=== PATIENT | male | born 1985 | race Caucasian/White ===

== ENCOUNTER 2021-08-03 18:51 | Emergency (ER) | payer BC, OTHER, SELFPAY ==
[2021-08-03] MEDS ORDERED: NA CHLORIDE 0.9% 1,000 ML ONE (19:25)
[2021-08-03] MEDS ORDERED: NIFEdipine 10 MG CAP ONE (19:25)
[2021-08-03] MEDS ORDERED: GLUCAGON 1 MG/VIAL ONE (19:25)
--- NOTE | 2021-08-03 20:05 | EDPHYS ---
Physician Documentation [facility] Name: Leo Townsend Age: 35 yrs Sex: Male : 1985 Arrival Date: 08/03/2021 Time: 18:51 Bed 16 Private MD: ED Physician Bebeto Palma HPI: 08/03 19:27 This 35 yrs old Male presents to ER via Ambulatory with complaints of Foreign pkl Body In Throat - food. 19:27 The patient or guardian reports the patient has a suspected foreign body, esophagus. pkl The reported likely foreign body is piece of meat, steak. Onset: The symptoms/episode began/occurred 2 hour(s) ago. The patient has experienced similar episodes in the past, a few times. Historical: - Allergies: 18:57 NKDA; vg1 - Home Meds: 18:57 pantoprazole oral [Active]; vg1 - PMHx: 18:57 GERD; Hiatal Hernia; vg1 - Immunization history:: Client reports having NOT received the Covid vaccine. - Social history:: Smoking status: Patient denies any tobacco usage or history of. ROS: 19:27 Eyes: Negative for injury, pain, redness, and discharge, ENT: Negative for injury, pkl pain, and discharge, Neck: Negative for injury, pain, and swelling, Cardiovascular: Negative for chest pain, palpitations, and edema, Respiratory: Negative for shortness of breath, cough, wheezing, and pleuritic chest pain, Abdomen/GI: Negative for abdominal pain, nausea, vomiting, diarrhea, and constipation, Back: Negative for injury and pain, : Negative for injury, bleeding, discharge, and swelling, MS/Extremity: Negative for injury and deformity, Skin: Negative for injury, rash, and discoloration, Neuro: Negative for headache, weakness, numbness, tingling, and seizure. Exam: 19:27 Head/Face: Normocephalic, atraumatic. Eyes: Pupils equal round and reactive to light, pkl extra-ocular motions intact. Lids and lashes normal. Conjunctiva and sclera are non-icteric and not injected. Cornea within normal limits. Periorbital areas with no swelling, redness, or edema. ENT: Nares patent. No nasal discharge, no septal abnormalities noted. Tympanic membranes are normal and external auditory canals are clear. Oropharynx with no redness, swelling, or masses, exudates, or evidence of obstruction, uvula midline. Mucous membranes moist. Neck: Trachea midline, no thyromegaly or masses palpated, and no cervical lymphadenopathy. Supple, full range of motion without nuchal rigidity, or vertebral point tenderness. No Meningismus. Chest/axilla: Normal chest wall appearance and motion. Nontender with no deformity. No lesions are appreciated. Cardiovascular: Regular rate and rhythm with a normal S1 and S2. No gallops, murmurs, or rubs. Normal PMI, no JVD. No pulse deficits. Respiratory: Lungs have equal breath sounds bilaterally, clear to auscultation and percussion. No rales, rhonchi or wheezes noted. No increased work of breathing, no retractions or nasal flaring. Abdomen/GI: Soft, non-tender, with normal bowel sounds. No distension or tympany. No guarding or rebound. No evidence of tenderness throughout. Back: No spinal tenderness. No costovertebral tenderness. Full range of motion. Skin: Warm, dry with normal turgor. Normal color with no rashes, no lesions, and no evidence of cellulitis. MS/ Extremity: Pulses equal, no cyanosis. Neurovascular intact. Full, normal range of motion. Neuro: Awake and alert, GCS 15, oriented to person, place, time, and situation. Cranial nerves II-XII grossly intact. Motor strength 5/5 in all extremities. Sensory grossly intact. Cerebellar exam normal. Normal gait. Vital Signs: 18:56 BP 140 / 98; Pulse 80; Resp 16; Temp 98.0; Pulse Ox 100% ; Weight 104.33 kg; Height 6 vg1 ft. 0 in. (182.88 cm); Pain 4/10; 19:44 BP 122 / 81; Pulse 80; Resp 18; Temp 98.8(O); Pulse Ox 100% on R/A; Pain 5/10; kc4 20:28 BP 115 / 82; Pulse 88; Resp 18; Temp 98.6(O); Pulse Ox 100% on R/A; Pain 0/10; kc4 18:56 Body Mass Index 31.19 (104.33 kg, 182.88 cm) vg1 MDM: 19:08 Patient medically screened. pkl 20:01 Data reviewed: vital signs, nurses notes. ED course: Patient feeling better. Able to pkl drink fluid without regurgitation. Advised to follow up with [employer] [facility] next week. To return if necessary. Patient understood instructions. Administered Medications: 19:40 Drug: NS 0.9% 1000 ml Route: IV; Rate: 125 ml/hr; Site: left antecubital; kc4 20:31 Follow up: IV Status: Completed infusion kc4 20:31 Follow up: Response: No adverse reaction kc4 19:40 Drug: Glucagon 1 mg Route: IVP; Site: left antecubital; kc4 20:31 Follow up: Response: No adverse reaction kc4 19:40 Drug: Procardia (NIFEdipine) 10 mg Route: PO; kc4 20:31 Follow up: Response: No adverse reaction kc4 Disposition Summary: 08/03/21 20:05 Discharge Ordered Location: Home pkl Problem: new pkl Symptoms: are resolved pkl Condition: Stable pkl Diagnosis - Foreign body ( Piece of steak ) lodged in esophagus ( Resolved ) pkl Followup: pkl - With: Private Physician - When: 2 - 3 days - Reason: Re-evaluation by your physician Discharge Instructions: - Discharge Summary Sheet bb Forms: - Medication Reconciliation Form pkl - Thank You Letter pkl - Antibiotic Education pkl - Prescription Opioid Use pkl Signatures: Bebeto Palma MD MD pkl Radhika Harris RN RN vg1 Antoinette Smith kc4
--- NOTE | 2021-08-03 20:05 | ER ---
Nurse's Notes [facility] Name: Leo Townsend Age: 35 yrs Sex: Male : 1985 Arrival Date: 08/03/2021 Time: 18:51 Bed 16 Private MD: Diagnosis: Foreign body ( Piece of steak ) lodged in esophagus ( Resolved ) Presentation: 08/03 18:56 Chief complaint: Patient states: Ate steak about two hours ago; states can feel vg1 something lodge in Epigastric area. Has tried to drink coke to make it go down, but each time drinks something will vomit it back up. Coronavirus screen: Vaccine status: Patient reports being unvaccinated. Client denies travel out of the [place] in the last 14 days. Ebola Screen: Patient negative for fever greater than or equal to 101.5 degrees Fahrenheit, and additional compatible Ebola Virus Disease symptoms. Initial Sepsis Screen: Does the patient meet any 2 criteria? No. Patient's initial sepsis screen is negative. Does the patient have a suspected source of infection? No. Patient's initial sepsis screen is negative. Risk Assessment: Do you want to hurt yourself or someone else? Patient reports no desire to harm self or others. Onset of symptoms was August 03, 2021. 18:56 Method Of Arrival: Ambulatory vg1 18:56 Acuity: XAVI 3 vg1 Triage Assessment: 18:57 General: Appears in no apparent distress. uncomfortable, Behavior is calm, cooperative. vg1 Pain: Complains of pain in epigastric area Pain currently is 4 out of 10 on a pain scale. Historical: - Allergies: 18:57 NKDA; vg1 - Home Meds: 18:57 pantoprazole oral [Active]; vg1 - PMHx: 18:57 GERD; Hiatal Hernia; vg1 - Immunization history:: Client reports having NOT received the Covid vaccine. - Social history:: Smoking status: Patient denies any tobacco usage or history of. Screenin:45 Abuse screen: Denies threats or abuse. Denies injuries from another. Nutritional kc4 screening: No deficits noted. On no prescribed diet Difficulty chewing/swallowing? Yes. Tuberculosis screening: No symptoms or risk factors identified. Never had TB. Possible symptoms: None Risk factors: None. Fall Risk None identified. No fall in past 12 months (0 pts). No secondary diagnosis (0 pts). IV access (20 points). Ambulatory Aid- None/Bed Rest/Nurse Assist (0 pts). Gait- Normal/Bed Rest/Wheelchair (0 pts) Mental Status- Oriented to own ability (0 pts). Total Irving Fall Scale indicates No Risk (0-24 pts). Assessment: 19:41 General: Appears in no apparent distress. comfortable, Behavior is calm, cooperative, kc4 appropriate for age. Pain: Complains of pain in epigastric area Pain does not radiate. Pain currently is 5 out of 10 on a pain scale. at worst was 8 out of 10 on a pain scale. Quality of pain is described as pressure, Pain began 1 hour ago. Is continuous. Neuro: No deficits noted. Cardiovascular: No deficits noted. Respiratory: No deficits noted. Airway is patent Trachea midline Respiratory effort is even, unlabored, Respiratory pattern is regular, symmetrical, Breath sounds are clear bilaterally. Onset: The symptoms/episode began/occurred suddenly. EENT: Throat pt states " i have steak stuck in my throat.". Reports difficulty swallowing since since 1 hr.prior to arrival. no sob or resp. compliants. Vital Signs: 18:56 BP 140 / 98; Pulse 80; Resp 16; Temp 98.0; Pulse Ox 100% ; Weight 104.33 kg; Height 6 vg1 ft. 0 in. (182.88 cm); Pain 4/10; 19:44 BP 122 / 81; Pulse 80; Resp 18; Temp 98.8(O); Pulse Ox 100% on R/A; Pain 5/10; kc4 20:28 BP 115 / 82; Pulse 88; Resp 18; Temp 98.6(O); Pulse Ox 100% on R/A; Pain 0/10; kc4 18:56 Body Mass Index 31.19 (104.33 kg, 182.88 cm) vg1 ED Course: 18:51 Patient arrived in ED. as 18:57 Triage completed. vg1 18:57 Arm band placed on. vg1 19:00 Patient has correct armband on for positive identification. Placed in gown. Bed in low kc4 position. Call light in reach. Side rails up X 1. 19:08 Bebeto Palma MD is Attending Physician. pkl 19:23 Antoinette Smith is Primary Nurse. kc4 19:30 Inserted saline lock: 18 gauge in left antecubital area, using aseptic technique. kc4 19:45 No provider procedures requiring assistance completed. kc4 20:30 IV discontinued, intact, bleeding controlled, No redness/swelling at site. Pressure kc4 dressing applied. Administered Medications: 19:40 Drug: NS 0.9% 1000 ml Route: IV; Rate: 125 ml/hr; Site: left antecubital; kc4 20:31 Follow up: IV Status: Completed infusion kc4 20:31 Follow up: Response: No adverse reaction kc4 19:40 Drug: Glucagon 1 mg Route: IVP; Site: left antecubital; kc4 20:31 Follow up: Response: No adverse reaction kc4 19:40 Drug: Procardia (NIFEdipine) 10 mg Route: PO; kc4 20:31 Follow up: Response: No adverse reaction kc4 Outcome: 20:05 Discharge ordered by . sandeep 20:29 Discharged to home ambulatory. kc4 20:29 Condition: improved 20:29 Discharge instructions given to patient, Instructed on discharge instructions, follow up and referral plans. Demonstrated understanding of instructions, follow-up care. 20:32 Patient left the ED. kc4 Signatures: Bebeto Palma MD MD pkl Martinez, Amelia as Garcia, Victoria, RN RN vg1 Antoinette Smith kc4
[2021-08-03 20:38] VITALS: O2SAT 100
[2021-08-03 20:42] VITALS: BP 115/82; TEMP 98.6
== END 2021-08-03 20:32 | disposition home or self-care (01) ==
LOC: ER 18:51
DX: T18.128A Food in esophagus causing other injury, initial encounter (principal)
CPT/HCPCS: 96361; 96374; 99283; J1610; J7030

== ENCOUNTER 2023-05-19 17:32 | Observation (INO) | payer BC ==
--- NOTE | 2023-05-19 18:39 | RAD REPORT ---
EXAM DESCRIPTION: RAD - Chest Single View - 05/19/2023 6:13 pm CLINICAL HISTORY: CHEST PAIN Chest pain. COMPARISON: No comparisons FINDINGS: Portable technique limits examination quality. The lungs are grossly clear. The heart is normal in size. No displaced fractures. IMPRESSION: No acute intrathoracic process suspected.
[2023-05-19 19:08] LABS: Absolute Lymphocytes (CBC) 2.6 K/uL (0.7-4.9); Hematocrit 49.8 % (39.6-49.0); Lymphocytes % 32.5 % (15.3-44.8); MCV 86.5 fL (80-100); MPV 7.7 fL (7.6-11.3); Platelets 190 thou/uL (152-406); RBC Red Blood Cell Count 5.75 M/uL (4.33-5.43)
[2023-05-19] MEDS ORDERED: ASPIRIN 81 MG CHEWABLE TABLET ONE (19:14)
[2023-05-19 19:25] LABS: Magnesium 2.3 mg/dL (1.6-2.4)
[2023-05-19 19:28] LABS: Troponin High Sensitivity 70.5 pg/mL (<58.9)
--- NOTE | 2023-05-19 20:45 | ER ---
Nurse's Notes [facility] Name: Leo Townsend Age: 37 yrs Sex: Male : 1985 Arrival Date: 05/19/2023 Time: 17:32 Bed 10 Private MD: Diagnosis: Chest pain, unspecified;Elevated troponin Presentation: 05/19 17:46 Chief complaint: Patient states: chest pain to the left side of his chest onset Thursday. cm10 PT states that the pain has been intermittent does not radiate. Pt states that the pain is "a pulsating pain.". Coronavirus screen: Vaccine status: Patient reports being unvaccinated. Client denies travel out of the [place] in the last 14 days. Ebola Screen: Patient denies travel to an Ebola-affected area in the 21 days before illness onset. No symptoms or risks identified at this time. Initial Sepsis Screen: Does the patient meet any 2 criteria? No. Patient's initial sepsis screen is negative. Does the patient have a suspected source of infection? No. Patient's initial sepsis screen is negative. Risk Assessment: Do you want to hurt yourself or someone else? Patient reports no desire to harm self or others. Onset of symptoms was May 19, 2023. 17:46 Method Of Arrival: Ambulatory 10 17:46 Acuity: XAVI 2 cm10 Historical: - Allergies: 17:48 NKDA; cm10 - PMHx: 17:48 GERD; hiatal hernia; cm10 - Immunization history:: Adult Immunizations unknown. - Social history:: Smoking status: Patient denies any tobacco usage or history of. Screenin:[address] [facility] ED Fall Risk Assessment (Adult) Score/Fall Risk Level 0 - 2 = Low Risk jl7 Oriented to surroundings, Maintained a safe environment. Abuse screen: Denies threats or abuse. Denies injuries from another. Nutritional screening: No deficits noted. Tuberculosis screening: No symptoms or risk factors identified. Assessment: 18:30 General: Appears in no apparent distress. uncomfortable, Behavior is calm, cooperative, jl7 appropriate for age. Pain: Complains of pain in anterior aspect of left upper chest Pain radiates to left arm Pain currently is 3 out of 10 on a pain scale. Quality of pain is described as pressure, Pain began 2-3 days ago. Neuro: Level of Consciousness is awake, alert, obeys commands, Oriented to person, place, time, situation. Cardiovascular: Patient's skin is warm and dry. Respiratory: Airway is patent Respiratory effort is even, unlabored, Respiratory pattern is regular, symmetrical. 19:10 General: Appears comfortable, Behavior is calm, cooperative. Pain: Complains of pain in ha1 chest Pain radiates to left arm Pain currently is 4 out of 10 on a pain scale. Quality of pain is described as pressure, Pain began 2-3 days ago. Neuro: Level of Consciousness is awake, alert, obeys commands, Oriented to person, place, time, situation. Cardiovascular: Heart tones S1 S2 present Patient's skin is warm and dry. Respiratory: Airway is patent Respiratory effort is even, unlabored, Respiratory pattern is regular, symmetrical. 20:10 Reassessment: Patient and/or family updated on plan of care and expected duration. Pain ha1 level reassessed. Patient is alert, oriented x 3, equal unlabored respirations, skin warm/dry/pink. pain 3/10 Patient states feeling better. Patient states symptoms have improved. 21:10 Reassessment: Patient and/or family updated on plan of care and expected duration. Pain ha1 level reassessed. Patient is alert, oriented x 3, equal unlabored respirations, skin warm/dry/pink. pain 3/10. 21:55 Reassessment: attempted to give report. ha1 22:00 Reassessment: Patient and/or family updated on plan of care and expected duration. Pain ha1 level reassessed. Patient is alert, oriented x 3, equal unlabored respirations, skin warm/dry/pink. 22:12 Reassessment: report given to MIKE Muñiz. ha1 Vital Signs: 17:46 BP 144 / 103; Pulse 71; Resp 16; Temp 98.6; Pulse Ox 96% ; Weight 104.33 kg; Height 6 cm10 ft. 0 in. ; Pain 3/10; 18:56 BP 142 / 85; Pulse 78; Resp 15; Pulse Ox 100% ; Pain 3/10; jl7 19:10 BP 141 / 86; Pulse 85; Resp 17 S; Pulse Ox 100% on R/A; ha1 20:10 BP 139 / 87; Pulse 86; Resp 16 S; Pulse Ox 99% on R/A; ha1 21:10 BP 132 / 90; Pulse 52; Resp 17 S; Pulse Ox 100% on R/A; ha1 17:46 Body Mass Index 31.19 (104.33 kg, 182.88 cm) cm10 17:46 Pain Scale: Adult cm10 18:56 Pain Scale: Adult jl7 ED Course: 17:34 Patient arrived in ED. rg4 17:36 Allyson Reza FNP-C [facility]. kb 17:36 Cristino Correa DO is Attending Physician. kb 17:48 Triage completed. cm10 17:48 Arm band placed on Patient placed in waiting room. cm10 18:15 XRAY Chest (1 view) In Process Unspecified. EDMS 18:30 Patient has correct armband on for positive identification. Provided Education on: use jl7 of call suazo. Client placed on continuous cardiac and pulse oximetry monitoring. NIBP monitoring applied. 18:30 Initial lab(s) drawn, by me, sent to lab. Inserted saline lock: 20 gauge in left jl7 antecubital area, using aseptic technique. Blood collected. Patient maintains SpO2 saturation greater than 95% on room air. 18:56 Delfina Resendiz, MIKE is Primary Nurse. jl7 19:28 Notified Nurse Practitioner and/or Physician Transit Survey Worker of a critical lab result(s), kl Troponin 70.5. 20:45 Thanh Pierson MD is Hospitalizing Provider. kb 22:13 No provider procedures requiring assistance completed. Patient admitted, IV remains in ha1 place. Administered Medications: 19:05 Drug: Aspirin PO Chewable Tablet 324 mg Route: PO; ha1 22:16 Follow up: Response: No adverse reaction ha1 Medication: 18:30 VIS not applicable for this client. jl7 Outcome: 20:45 Decision to Hospitalize by Provider. kb 22:13 Condition: stable ha1 22:22 Admitted to Med/surg accompanied by tech, via wheelchair, room 214, with chart, Report ha1 called to MIKE Muñiz 22:22 Discharge instructions given to patient, Instructed on the need for admit. 22:23 Patient left the ED. ha1 Signatures: Dispatcher [employer] EDNH Allyson Reza, Zuri Blackburn RN RN kl Garcia, Rubi rg4 Delfina Resendiz RN RN jl7 Mariah Romero RN RN 1 Estelle Morrison, RN RN cm10
--- NOTE | 2023-05-19 20:45 | EDPHYS ---
Physician Documentation [facility] Name: Leo Townsend Age: 37 yrs Sex: Male : 1985 Arrival Date: 05/19/2023 Time: 17:32 Bed 10 Private MD: ED Physician Cristino Correa HPI: 05/19 22:25 This 37 yrs old Male presents to ER via Ambulatory with complaints of Chest Pain. kb 22:25 The patient or guardian reports chest pain that is located primarily in the anterior kb chest wall, left. The pain does not radiate. Associated signs and symptoms: Pertinent positives: palpitations. The chest pain is described as dull. Duration: The patient or guardian reports multiple episodes. Modifying factors: The symptoms are alleviated by nothing. the symptoms are aggravated by nothing. Severity of pain: At its worst the pain was moderate in the emergency department the pain is unchanged. The patient has not experienced similar symptoms in the past. The patient has not recently seen a physician. Pt reports intermittent chest pain since Thursday that became constant today. States he has had intermittent palpitations with the pain. Historical: - Allergies: 17:48 NKDA; cm10 - PMHx: 17:48 GERD; hiatal hernia; cm10 - Immunization history:: Adult Immunizations unknown. - Social history:: Smoking status: Patient denies any tobacco usage or history of. ROS: 22:25 Constitutional: Negative for fever, chills, and weight loss. kb 22:25 Cardiovascular: Positive for chest pain, palpitations. 22:25 All other systems are negative. Exam: 21:44 Constitutional: This is a well developed, well nourished patient who is awake, alert, kb and in no acute distress. Head/Face: Normocephalic, atraumatic. ENT: Moist Mucous membranes Cardiovascular: Regular rate and rhythm with a normal S1 and S2. No gallops, murmurs, or rubs. No pulse deficits. Respiratory: Respirations even and unlabored. No increased work of breathing. Talking in full sentences Abdomen/GI: Soft, non-tender. No distention Skin: Warm, dry with normal turgor. Normal color. MS/ Extremity: Pulses equal, no cyanosis. Neurovascular intact. Full, normal range of motion. Neuro: Awake and alert, GCS 15, oriented to person, place, time, and situation. Moves all extremities. Normal gait. 21:44 ECG was reviewed by the Attending Physician. Vital Signs: 17:46 BP 144 / 103; Pulse 71; Resp 16; Temp 98.6; Pulse Ox 96% ; Weight 104.33 kg; Height 6 cm10 ft. 0 in. ; Pain 3/10; 18:56 BP 142 / 85; Pulse 78; Resp 15; Pulse Ox 100% ; Pain 3/10; jl7 19:10 BP 141 / 86; Pulse 85; Resp 17 S; Pulse Ox 100% on R/A; ha1 20:10 BP 139 / 87; Pulse 86; Resp 16 S; Pulse Ox 99% on R/A; ha1 21:10 BP 132 / 90; Pulse 52; Resp 17 S; Pulse Ox 100% on R/A; ha1 17:46 Body Mass Index 31.19 (104.33 kg, 182.88 cm) cm10 17:46 Pain Scale: Adult cm10 18:56 Pain Scale: Adult jl7 MDM: 17:40 Patient medically screened. kb 22:24 Data reviewed: vital signs, nurses notes. Consideration of Admission/Observation kb Patient was admitted/placed on observation. Escalation of care including admission/observation considered. Management of patient was discussed with the following: Hospitalist: Yobani [facility] accepts pt for admission under Dr Pierson. Counseling: I had a detailed discussion with the patient and/or guardian regarding the historical points, exam findings, and any diagnostic results supporting the discharge/admit diagnosis, lab results, radiology results, the need for further work-up and treatment in the hospital. 22:25 Differential diagnosis: abnormal EKG, acute myocardial infarction, coronary artery kb disease chest wall pain. 05/19 17:40 Order name: Basic Metabolic Panel; Complete Time: 19:29 kb 05/19 17:40 Order name: CBC with Diff; Complete Time: 19:29 kb 05/19 17:40 Order name: Magnesium; Complete Time: 19:29 kb 05/19 17:40 Order name: NT PRO-BNP; Complete Time: 19:29 kb 05/19 17:40 Order name: Troponin HS; Complete Time: 19:29 kb 05/19 20:24 Order name: D-Dimer; Complete Time: 22:10 kb 05/19 21:34 Order name: Troponin High Sensitivity ha1 05/19 22:18 Order name: Troponin High Sensitivity; Complete Time: 22:21 EDMS 05/19 17:40 Order name: XRAY Chest (1 view); Complete Time: 18:42 kb 05/19 17:40 Order name: EKG; Complete Time: 17:41 kb 05/19 17:40 Order name: Cardiac monitoring; Complete Time: 18:58 kb 05/19 17:40 Order name: EKG - Nurse/Tech; Complete Time: 17:51 kb 05/19 17:40 Order name: IV Saline Lock; Complete Time: 18:58 kb 05/19 17:40 Order name: Labs collected and sent; Complete Time: 18:58 kb 05/19 17:40 Order name: O2 Per Protocol; Complete Time: 17:51 kb 05/19 17:40 Order name: O2 Sat Monitoring; Complete Time: 17:51 kb EC:44 Rate is 64 beats/min. Rhythm is regular. QRS Panacea is Normal. NC interval is normal at kb 152 msec. QRS interval is normal at 92 msec. QT interval is normal at 377 msec. Administered Medications: 19:05 Drug: Aspirin PO Chewable Tablet 324 mg Route: PO; ha1 22:16 Follow up: Response: No adverse reaction ha1 Disposition: 05/20 11:27 Co-signature as Attending Physician, Cristino Correa DO I was immediately available on-site ms3 in the Emergency Department for consultation in the care of the patient. Disposition Summary: 05/19/23 20:45 Hospitalization Ordered Hospitalization Status: Observation kb Provider: Thanh Pierson Location: Telemetry/MedSurg (observation) kb Condition: Stable kb Problem: new kb Symptoms: are unchanged kb Bed/Room Type: Standard Room Assignment: 214(05/19/23 21:35) Diagnosis - Chest pain, unspecified kb - Elevated troponin kb Forms: - Medication Reconciliation Form kb - SBAR form kb - Leadership Thank You Letter kb Signatures: Dispatcher [employer] EDMT Allyson Reza FNP-C FNP-Ckb Webb, Martha, RN RN Yobani Duque FNP-C FNP-Cristino Wright DO DO ms3 Mariah Romero RN RN 1 Estelle Morrison RN RN cm10 Corrections: (The following items were deleted from the chart) 05/19 21:35 20:45 kb mw
--- NOTE | 2023-05-19 22:32 | P.HP ---
Certification for Inpatient Patient admitted to: Observation With expected LOS: <2 Midnights Patient will require the following post-hospital care: None Practitioner: I am a practitioner with admitting privileges, knowledge of patient current condition, hospital course, and medical plan of care. Services: Services provided to patient in accordance with Admission requirements found in Title 42 Section 412.3 of the Code of Federal Regulations Patient History Date of Service: 05/19/23 Reason for admission: Chest pain History of Present Illness: 29-year-old male with history of GERD presents to the emergency department chief complaint of chest pain. He reports episodic intermittent chest pain that started on Thursday lasting for approximately 5 minutes at a time described as throbbing and also sometimes dull/pressure-like. The pain is not associated with any particular event or exertion/eating. He does take pantoprazole for GERD but has not needed any additional medications recently nor does he feel like his reflux has been bad. Today his chest pain remained persistent had some mild paresthesia in the left upper extremity for that reason he came to the emergency department. He was evaluated in the emergency department his EKG was without STEMI criteria his initial high-sensitivity troponin was mildly elevated at 70.5. He was given aspirin in the ED, ED provider wishes to admit under observation for ACS rule out. Patient denies any previous cardiac evaluation, has no family history of heart disease. Allergies No Known Drug Allergi Allergy (Uncoded 04/27/16 21:16) Unknown - Past Medical/Surgical History -: GERD -: None Psychosocial/ Personal History: Patient lives at home with his family, is employed - Family History Family History: Reviewed- Non-Contributory - Social History Smoking Status: Never smoker Place of Residence: Home Review of Systems 10-point ROS is otherwise unremarkable Cardiovascular: Chest Pain Physical Examination - Physical Exam General: Alert, In no apparent distress, Oriented x3 HEENT: Atraumatic, PERRLA, Mucous membr. moist/pink, EOMI, Sclerae nonicteric Neck: Supple, 2+ carotid pulse no bruit, No LAD, Without JVD or thyroid abnormality Respiratory: Clear to auscultation bilaterally, Normal air movement Cardiovascular: Regular rate/rhythm, Normal S1 S2 Gastrointestinal: Normal bowel sounds, No tenderness Musculoskeletal: No tenderness Integumentary: No rashes Neurological: Normal gait, Normal speech, Normal strength at 5/5 x4 extr, Normal tone, Normal affect Lymphatics: No axilla or inguinal lymphadenopathy - Studies Laboratory Data (last 24 hrs) 05/19/23 05/19/23 18:50 18:50 WBC 8.00 Hgb 17.0 Hct 49.8 H Plt Count 190 Sodium 136 Potassium 4.0 BUN 20 H Creatinine 1.40 H Glucose 97 Magnesium 2.3 Assessment and Plan - Plan Assessment: Chest pain rule out ACS GERD Plan: Chest pain rule out ACS Initial high-sensitivity troponin mildly elevated, will trend troponins, monitor on telemetry, cardiology consult. Continue aspirin, statin, as needed pain medications. D-dimer negative. GERD Continue Protonix. DVT PPX: Lovenox Code status: Full Discharge Plan: Home Plan to discharge in: 24 Hours - Advance Directives Does patient have a Living Will: No Does patient have a Durable POA for Healthcare: No - Code Status/Comfort Care Code Status Assessed: Yes (Full code) Critical Care: No Time Spent Managing Pts Care (In Minutes): 55
[2023-05-19 22:41] VITALS: BMI 32.6
[2023-05-20 03:40] LABS: Absolute Lymphocytes (CBC) 2.4 K/uL (0.7-4.9); MCV 85.7 fL (80-100); MPV 7.8 fL (7.6-11.3); Platelets 164 thou/uL (152-406); RBC Red Blood Cell Count 5.37 M/uL (4.33-5.43)
[2023-05-20 04:09] LABS: Potassium 3.9 mEq/L (3.5-5.1); Thyroid Stimulating Hormone 1.03 uIU/mL (0.358-3.740)
[2023-05-20 04:10] LABS: Troponin High Sensitivity 65.2 pg/mL (<58.9)
--- NOTE | 2023-05-20 07:25 | P.PN ---
Date of Service: 05/20/23 Subjective: Dull chest pain continues - constant since yesterday morning chest pain rated 4-5/10 today compared to yesterdays 3/10 Feels some numbness in upper left extremity since yesterday +intermittent chest pain with each heartbeat since thursday (~2 episodes a day lasting for ~2-5 min) ROS: 10 point ROS as noted above, otherwise negative Physical Exam: GEN: Alert, oriented, NAD HEENT: Normal conjunctiva, sclera anicteric CV: Regular rate and rhythm, no edema Pulm: Nonlabored respirations on room air ABD: Soft, nontender, nondistended MSK: No joint tenderness Integumentary: No rashes Neuro: Normal speech, normal affect vitals reviewed Problem List: NSTEMI; chest pain GERD NSTEMI, chest pain Dull constant chest pain / pressure since yesterday morning +intermittent chest pain with each heartbeat since Thursday (~2 episodes a day lasting for ~2-5 min) troponins mildly elevated, continue to trend monitor on telemetry cardiology consulted Continue aspirin, statin PRN pain medication Echo ordered stress test ordered for tomorrow D-dimer negative GERD Continue Protonix. VTE: lovenox Code: Full Dispo: Home , 1-2 days
[2023-05-20] MEDS: PANTOPRAZOLE 40MG TABLET PO SCH (07:44)
[2023-05-20] MEDS: ASPIRIN EC 81 MG TAB PO SCH (08:43)
[2023-05-20] MEDS: ENOXAPARIN 40 MG/0.4 ML SQ SCH ×2 (08:43→08:46)
[2023-05-20] MEDS ORDERED: POTASSIUM CL SA 10 MEQ TAB PO ONE (09:00)
--- NOTE | 2023-05-20 13:05 | EKG ---
Test Date: 2023-05-19 Test Time: 17:45:00 Reo Asset Manager: MARY MEASUREMENT RESULTS: Intervals: Rate: 64 [place]: 152 QRSD: 92 QT: 366 QTc: 377 [place]: P: 44 [place]: 152 QRS: 42 T: -8 INTERPRETIVE STATEMENTS: Normal sinus rhythm Inferior infarct, age undetermined Abnormal ECG No previous ECG available for comparison Electronically Signed On 05-20-23 13:03:37 CDT by Aly Ariza
--- NOTE | 2023-05-20 13:54 | ECHO ---
HEIGHT: 6 ft 0 in WEIGHT: 240 lb 12.8 oz DATE OF STUDY: 05/20/[address]: Yobani Duque NP 2-DIMENSIONAL: YES M.MODE: YES DOPPLER: YES COLOR FLOW: YES TDS: NO PORTABLE: YES DEFINITY: NO BUBBLE STUDY: NO DIAGNOSIS: CHEST PAIN CARDIAC HISTORY: CATHERIZATION: SURGERY: PROSTHETIC VALVE: PACEMAKER: MEASUREMENTS (cm) DIASTOLIC (NORMALS) SYSTOLIC (NORMALS) IVSd 1.3 (0.6-1.2) LA Diam 3.5 (1.9-4.0) LVEF 60% LVIDd 3.6 (3.5-5.7) LVIDs 2.7 (2.0-3.5) %FS 25% LVPWd 1.4 (0.6-1.2) Ao Diam 3.0 (2.0-3.7) 2 DIMENSIONAL ASSESSMENT: RIGHT ATRIUM: NORMAL LEFT ATRIUM: NORMAL RIGHT VENTRICLE: NORMAL LEFT VENTRICLE: NORMAL TRICUSPID VALVE: NORMAL MITRAL VALVE: NORMAL PULMONIC VALVE: NORMAL AORTIC VALVE: NORMAL PERICARDIAL EFFUSION: NONE AORTIC ROOT: NORMAL LEFT VENTRICULAR WALL MOTION: NORMAL. DOPPLER/COLOR FLOW: TRACE MITRAL AND TRICUSPID REGURGITATION. COMMENTS: 1. NORMAL LEFT VENTRICULAR EJECTION FRACTION 60-65%. 2. NORMAL WALL MOTION. 3. NORMAL DIASTOLIC FUNCTION. 4. TRACE MITRAL AND TRICUSPID REGURGITATION. TECHNOLOGIST: Shelbie BYRNE
--- NOTE | 2023-05-20 19:28 | CON ---
Date of Consultation: 05/20/2023 Reason For Consultation: Chest pain. History Of Present Illness: A 37-year-old male with history of acid reflux, presented with chest danielito n, intermittent since Thursday. The episodes last about 5-10 minutes. Dull feeling. No radiation. N o diaphoresis, nausea, vomiting in the emergency room and in the hospital. His troponins are borderl ine. Past Medical History: Acid reflux. Medications: Refer reconciliation sheet for detailed list. Allergies: NO KNOWN DRUG ALLERGIES. Family History: No premature coronary artery disease or cancer. Social History: He does not smoke or drink. Does not use any drugs. Review of Systems: All systems reviewed are negative except as mentioned in HPI. Physical Examination: Vital Signs: Reviewed. Head and Neck: Pupils are equal, reactive to light. Intact eye movements. No JVD. No cervical lym phadenopathy. Neck: Supple. Thyroid is not enlarged. Lungs: Clear to auscultation bilaterally. No rhonchi, wheezing, or crackles. No accessory muscle u se. Heart: Regular rate and rhythm. No extra sounds. Abdomen: Soft, nontender. Bowel sounds positive. No organomegaly. No masses or hernia. No rigidi ty or rebound. Extremities: No edema, clubbing, cyanosis. Intact pulses. Skin: No rash. Neurologic: Alert, awake, oriented x3. No acute focal deficits appreciated. Investigations: Echo normal ejection fraction. Normal diastolic function. Troponin peaked at 71. BUN 18, creatinine 1.32 and hemoglobin is 16.4. LDL cholesterol is 109. Assessment/recommendations: 1.Chest pain. Borderline troponin. Chest pain is atypical. However, since the troponin is borderl ine positive. Obtain an exercise nuclear stress test on him tomorrow to further evaluate. 2.Hyperlipidemia. Recommend statin, Lipitor 40 mg at bedtime. 3.Acute renal failure due to dehydration. This has improved. SR/MODL Voice ID: [id number] Report ID: [id number]
[2023-05-20] MEDS ORDERED: ATORVASTATIN 40 MG TAB PO SCH (21:00)
[2023-05-20] MEDS: MORPHINE 2 MG/ML SYR IV PRN (21:30)
[2023-05-20] MEDS: ONDANSETRON 4 MG/2 ML VIAL IV PRN (21:30)
[2023-05-21] MEDS ORDERED: MELATONIN 5 MG TABLET PO PRN (00:17)
[2023-05-21] MEDS ORDERED: MELATONIN 5 MG TABLET PO ONE (01:48)
[2023-05-21 03:24] LABS: Absolute Lymphocytes (CBC) 2.8 K/uL (0.7-4.9); Hematocrit 45.7 % (39.6-49.0); Lymphocytes % 35.9 % (15.3-44.8); MCV 85.6 fL (80-100); MPV 7.7 fL (7.6-11.3); Platelets 181 thou/uL (152-406); RBC Red Blood Cell Count 5.34 M/uL (4.33-5.43)
[2023-05-21 03:41] LABS: Potassium 4.4 mEq/L (3.5-5.1)
[2023-05-21] MEDS: PANTOPRAZOLE 40MG TABLET PO SCH (05:23)
[2023-05-21] MEDS: ONDANSETRON 4 MG/2 ML VIAL IV PRN (05:26)
[2023-05-21] MEDS: MORPHINE 2 MG/ML SYR IV PRN (05:27)
[2023-05-21 05:41] VITALS: O2SAT 96
--- NOTE | 2023-05-21 07:06 | P.PN ---
Date of Service: 05/21/23 Subjective: Chest pain continues ~same no episodes of chest pain with each hearbeat today no acute events overnight ROS: 10 point ROS as noted above, otherwise negative Physical Exam: GEN: Alert, oriented, NAD HEENT: Normal conjunctiva, sclera anicteric CV: Regular rate and rhythm, no edema Pulm: Nonlabored respirations on room air ABD: Soft, nontender, nondistended MSK: No joint tenderness Integumentary: No rashes Neuro: Normal speech, normal affect vitals reviewed Problem List: NSTEMI; chest pain JUAN A GERD NSTEMI, chest pain Dull constant chest pain / pressure since yesterday morning +intermittent chest pain with each heartbeat since Thursday (~2 episodes a day lasting for ~2-5 min) troponins mildly elevated, continue to trend monitor on telemetry cardiology consulted Continue aspirin, statin PRN pain medication Echo:60% EF, Trace mitral and tricuspid regurgitation otherwise normal. stress test negative 05/21 D-dimer negative JUAN A likely secondary to dehydration patient reports no prior h/o of JUAN A/CKD Started IV fluids GERD Continue Protonix. VTE: lovenox Code: Full Dispo: Home , 1-2 days
[2023-05-21] MEDS ORDERED: REGADENOSON 0.4 MG/5 ML SYR IV ONE (07:31)
[2023-05-21] MEDS: ENOXAPARIN 40 MG/0.4 ML SQ SCH (07:53)
[2023-05-21] MEDS: ASPIRIN EC 81 MG TAB PO SCH (07:53)
--- NOTE | 2023-05-21 11:43 | RAD REPORT ---
EXAM DESCRIPTION: NM - Rest Stress Cardiac Imaging - 05/21/2023 11:30 am CLINICAL HISTORY: Elevated troponin COMPARISON: None. TECHNIQUE: The patient was administered 10.9 mCi of Tc 99m Sestamibi prior to resting SPECT imaging of the heart. The patient was then administered 30. 8 mCi of Tc 99m Sestamibi following exercise or p harmacologic stress. Multiplanar SPECT images were reviewed. FINDINGS: There is uniformity of radiotracer uptake involving the entire left ventricular myocardiu m on rest and stress images. The left ventricular ejection fraction equals 54% IMPRESSION: Negative for a myocardial perfusion defect
[2023-05-21 12:13] VITALS: BP 140/65; TEMP 97.9
--- NOTE | 2023-05-21 12:36 | TREADPHA ---
DX: ELEVATED TROPONIN Date of Study: 05/21/2023 Ht: 6' 0 " Wt: 240 lb 12.8 oz Consulting Physician: JULIO MEDICATIONS: ASPIRIN, LIPITOR, LOVENOX, MORPHINE, ZOFRAN, PROTONIX HISTORY: GASTROESOPHAGEAL REFLUX DISEASE PHYSICIAL EXAMINATION: RESTING B.P.: 115/71 RESTING H.R.: 60 RESTING EKG: WITHIN NORMAL LIMITS, NORMAL SINUS RHYTHM PROTOCOL: PHARMACOLOGIC EXERCISE TIME: 3:30 B.P. AT [facility] STRESS: 141/67 IMPRESSION: LEXISCAN STRESS TEST PERFORMED. CARDIOLITE INJECTED PER PROTOCOL (SEE NUCLEAR MEDICINE REPORT). NO SUPRAVENTRICULAR TACHCARDIA OR VENTRICULAR TACHYCARDIA NOTED. PREMATURE VENTRICULAR COMPLEXES NOTED DURING PROCEDURE. PATIENT COMPLAINED OF CHEST DISCOMFORT DURING PROCEDURE, SYMPTOMS RESOLVED POST PROCEDURE. NO ELECTROCARDIOGRAM CHANGES WITH LEXISCAN.
[2023-05-21] MEDS ORDERED: NA CHLORIDE 0.9% 1,000 ML IV SCH (13:00)
--- NOTE | 2023-05-21 13:40 | P.DS ---
Admission Date: 05/19/23 Discharge Date: 05/21/23 Disposition: ROUTINE DISCHARGE Discharge Condition: GOOD Reason for Admission: Chest pain Consultations: Cardiology - Dr. Arzia Brief History of Present Illness: 37 yo M, PMH: GERD Patient presents to the emergency department chief complaint of chest pain. He reports episodic intermittent chest pain that started on Thursday lasting for approximately 5 minutes at a time described as throbbing and also sometimes dull/pressure-like. The pain is not associated with any particular event or exertion/eating. He does take pantoprazole for GERD but has not needed any additional medications recently nor does he feel like his reflux has been bad. Today his chest pain remained persistent had some mild paresthesia in the left upper extremity for that reason he came to the emergency department. He was evaluated in the emergency department his EKG was without STEMI criteria his initial high-sensitivity troponin was mildly elevated at 70.5. He was given aspirin in the ED Hospital Course: Problem List: NSTEMI; chest pain JUAN A GERD Patient presented with intermittent chest pain. He was found to have an NSTEMI with mildly elevated troponins - remained stable in 60s-70s range, upper limit of normal range: 58.9. NSTEMI felt to be demand ischemia in setting of dehydration. D-dimer, BNP within normal range. Echo noted 60% EF, Trace mitral and tricuspid regurgitation otherwise normal. Cardiology was consulted. Nuclear stress test was negative. Dr. Ariza recommends to follow up in office and was deemed stable for discharge. Recommended if pain becomes worse / exertional to have quicker follow up and would possibly plan for cardiac catheterization as outpatient Patient is from out of town, recommended to establish care with a Manager Hris as soon as possible. Patient was started on statin due to high cholesterol and should continue on discharge to lower overall cardiac risk give this episode. Total cholesterol: 226 (normal range: <200) LDL cholesterol: 109 (normal range: <130) Tryglycerides: 372 (normal range: <150) Cr: 1.3 (normal range 0.70 - 1.3) Creatinine elevation likely secondary to dehydration. Recommend to ensure adequate hydration. Recommend to follow up with PCP for repeat blood work in a few weeks for further monitoring. Medications: New: Statin 20 mg at bedtime Follow up: PCP 3-5 days Cardiology in 1-2 weeks Physical Exam: GEN: Alert, oriented, NAD HEENT: Normal conjunctiva, sclera anicteric CV: Regular rate and rhythm, no edema Pulm: Nonlabored respirations on room air ABD: Soft, nontender, nondistended MSK: No joint tenderness Integumentary: No rashes Neuro: Normal speech, normal affect Vital Signs/Physical Exam: Temp Pulse Resp BP Pulse Ox 97.9 F 73 18 140/65 92 05/21/23 12:00 05/21/23 12:00 05/21/23 12:00 05/21/23 12:00 05/21/23 12:00 Laboratory Data at Discharge: WBC 7.80 thou/uL (4.3-10.9) 05/21/23 02:24 Hgb 16.1 g/dL (13.6-17.9) 05/21/23 02:24 Hct 45.7 % (39.6-49.0) 05/21/23 02:24 Plt Count 181 thou/uL (152-406) 05/21/23 02:24 Sodium 136 mEq/L (136-145) 05/21/23 02:24 Potassium 4.4 mEq/L (3.5-5.1) 05/21/23 02:24 BUN 17 mg/dL (7-18) 05/21/23 02:24 Creatinine 1.33 mg/dL (0.70-1.30) H 05/21/23 02:24 Glucose 96 mg/dL (74-106) 05/21/23 02:24 Magnesium 2.3 mg/dL (1.6-2.4) 05/19/23 18:50 Triglycerides 372 mg/dL (<150) H 05/20/23 02:38 Cholesterol 226 mg/dL (<200) H 05/20/23 02:38 HDL Cholesterol 43 mg/dL (40-60) 05/20/23 02:38 Cholesterol/HDL Ratio 5.26 05/20/23 02:38 Home Medications: Pantoprazole Sodium 40 mg PO DAILY 05/20/23 Atorvastatin Calcium 20 mg PO BEDTIME 30 Days #30 tab 05/21/23 New Medications: Atorvastatin Calcium 20 mg PO BEDTIME 30 Days #30 tab Physician Discharge Instructions: Patient presented with intermittent chest pain. He was found to have an NSTEMI with mildly elevated troponins - remained stable in 60s-70s range, upper limit of normal range: 58.9. NSTEMI felt to be demand ischemia in setting of dehydration. D-dimer, BNP within normal range. Echo noted 60% EF, Trace mitral and tricuspid regurgitation otherwise normal. Cardiology was consulted. Nuclear stress test was negative. Dr. Ariza recommends to follow up in office and was deemed stable for disch arge. Recommended if pain becomes worse / exertional to have quicker follow up and would possibly plan for cardiac catheterization as outpatient Patient is from out of town, recommended to establish care with a Manager Hris as soon as possible. Patient was started on statin due to high cholesterol and should continue on discharge to lower overall cardiac risk give this episode. Total cholesterol: 226 (normal range: <200) LDL cholesterol: 109 (normal range: <130) Tryglycerides: 372 (normal range: <150) Cr: 1.3 (normal range 0.70 - 1.3) Creatinine elevation likely secondary to dehydration. Recommend to ensure adequate hydration. Recommend to follow up with PCP for repeat blood work in a few weeks for further monitoring. Medications: New: Statin 20 mg at bedtime Follow up: PCP 3-5 days Cardiology in 1-2 weeks Time spent managing pt's care (in minutes): 45
--- NOTE | 2023-05-21 19:40 | PN ---
Date of Progress Note: 05/21/2023 Subjective: Seen by bedside. Doing well. No further chest pain. Review of Systems: No chest pain, shortness of breath, orthopnea, or cough. No nausea, vomiting, or diarrhea. All othe r systems were reviewed, they were negative. Objective: Vital Signs: Reviewed. Head and Neck: Pupils are equal, reactive to light. Intact eye movements. No JVD. No cervical lym phadenopathy. Neck is supple. Thyroid is not enlarged. Lungs: Clear to auscultation bilaterally. No rhonchi, wheezing, or crackles. No accessory muscle u se. Heart: Regular rate and rhythm. No extra sounds. Abdomen: Soft, nontender. Bowel sounds positive. No organomegaly. No masses or hernia. No rigidi ty or rebound. Extremities: No edema, clubbing, or cyanosis. Intact pulses. Skin: No rash. No nodule. Neurologic: Alert, awake, oriented x3. No acute focal deficits appreciated. Investigations: Labs were reviewed. Assessment And Recommendations: 1.Elevated troponin. Stress test was entirely normal. Ejection fraction is normal on echo. Likely , this is demand. I again explained to him that there is a need to do a close followup in 1 [place] to see his primary compliance paralegal. If he continues to have chest pain, then coronary angiogram should be offered. 2.Renal failure, probably due to dehydration and gradually better. SR/MODL Voice ID: [id number] Report ID: [id number]
== END 2023-05-21 14:09 | disposition home or self-care (01) ==
LOC: ER 17:32 → ERHOLD 21:18 → 2ND 21:46
PROVIDERS: ADMIT Hospitalist; ATTEND Hospitalist
DX: I21.4 Non-ST elevation (NSTEMI) myocardial infarction (principal); R77.8 Other specified abnormalities of plasma proteins; N17.9 Acute kidney failure, unspecified; K21.9 Gastro-esophageal reflux disease without esophagitis; R20.2 Paresthesia of skin; E78.5 Hyperlipidemia, unspecified; E78.00 Pure hypercholesterolemia, unspecified; E78.2 Mixed hyperlipidemia
CPT/HCPCS: 36415; 71045; 78452; 80048; 80061; 83735; 83880; 84439; 84443; 84484; 85025; 85379; 93005; 93017; 93306; 99285; A9500; G0378; J1650; J2270; J2405; J2785; J7030